=== PATIENT | male | born 2000 | race Caucasian/White ===

== ENCOUNTER 2025-02-02 10:44 | Outpatient (AMB) | payer BC, SELFPAY ==
--- NOTE | 2025-02-02 10:45 | MHC.PC.OV ---
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 - [facility] Last office visit/CPE/labs - 7-8 years Acute issue(s) - None Past Medical History - Acid reflux Surgical History - Tonsillectomy Family History - Mom: Thyroid disorder Social History - Nonsmoker. Does not vape. Drinks 5 beers twice weekly on weekends. Denies recreational drug use - Has been making healthy dietary choices. Exercises routinely. Generally sleep well - He is sexually active, in a monogamous relationship, and has no concerns for STDs Health maintenance - Last eye exam was several years ago. Referred to Ophthalmology for routine eye care - Last dental visit was 2 weeks ago - Last tetanus vaccine was 5 years ago. Record not currently available - Has not been vaccinated for the flu this season; declines vaccination [facility] Medical History (Updated 02/02/25 @ 11:26 by Moon Frank CNP) Acid reflux Surgical History (Updated 02/02/25 @ 10:59 by Stacy Jasso MA) History of tonsillectomy Family History (Updated 02/02/25 @ 10:59 by Stacy Jasso MA) Sister Asthma Mother Thyroid disorder Social History Housing: House Patient Tobacco Use Status: Never used Tobacco e-Cigarette/Vaping Use: Never Used Second Hand Smoke Exposure: Yes service: No Current occupational status: employed 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 1. Little interest or pleasure in doing things: not at all 2. Feeling down, depressed, or hopeless: not at all 3. Trouble falling or staying asleep, or sleeping too much: not at all 4. Feeling tired or having little energy: several days 5. Poor appetite or overeating: several days 6. Feeling bad about yourself - or that you are a failure or have let yourself or your family down: not at all 7. Trouble concentrating on things, such as reading the newspaper or watching television: not at all 8. Moving or speaking so slowly that other people could have noticed. Or the opposite - being so fidgety or restless that you have been moving around a lot more than usual: not at all 9. Thoughts that you would be better off or of hurting yourself in some way: not at all Total score: 2 Depression Screening Interpretation: Negative Depression Screening Done: Yes 94757 - PHQ-9 Billing: Yes Source: Developed by Drs. Suleiman Lujan, Sanjana Kang, Mack Lawton and colleagues, with an educational ponce from [employer]. Thrive Questionnaire Date Thrive assessed: 02/02/25 I am a: Patient What is your living situation today?: I have a steady place to live Within the past 12 months, did the food you bought not last and you didn't have the money to get more?: Never true Within the past 12 months, did you worry whether your food would run out before you got money to buy more?: Never true Do you have trouble paying for medicines?: No Do you have trouble getting transportation to medical appointments?: No Do you have trouble paying your heating and electricity bill?: No Do you have trouble taking care of your child, family member or friend?: No Do you have trouble with day-to-day activities such as bathing, preparing meals, shopping, managing finances, etc.?: No Are you currently unemployed and looking for a job?: No Are you interested in more education?: No Please select the resources that you would like help with: None Currently or been in a relationship where the following occur: No concerns reported THRIVE Score: 0 AUDIT C Alcohol Use Questionnaire (AUDIT-C) 1. How often do you have a drink containing alcohol?: 2-3 times a week 2. How many drinks containing alcohol do you have on a typical day when you are drinking?: 3 or 4 3. How often do you have six or more drinks on one occasion?: Monthly Total Score: 6 Score Reviewed/Action Taken: Yes MICHAEL-7 AMB Questionnaire MICHAEL-7 Date MICHAEL - 7 assessed: 02/02/25 Feeling nervous, anxious, or on edge: 1 = Several days Not being able to stop or control worryin = Several days Worrying too much about different things: 1 = Several days Trouble relaxin = Not at all Being so restless that it is hard to sit still: 0 = Not at all Becoming easily annoyed or irritable: 1 = Several days Feeling afraid as if something awful might happen: 0 = Not at all Total MICHAEL-7 score (0-4 normal; 5-9 mild; 10-14 moderate; 15-21 severe): 4 Source: Developed by Drs. Suleiman Lujan, Sanjana Kang, Mack Lawton and colleagues, with an educational ponce from [employer]. MICHAEL-7 Assessment Billing MICHAEL-7 Assessment Tool: MICHAEL-7 Assessment 18258 Review of Systems Const Details: Denies chills, Denies fatigue, Denies fever(s), Denies headache(s) and Denies weakness HEENT Denies change in vision, Denies dizziness, Denies headache(s), Denies hearing loss, Denies nasal congestion, Denies sinus pain, Denies sinus pressure and Denies sore throat Card Denies chest pain, Denies lightheadedness, Denies dyspnea and Denies other (palpitations) Resp Denies cough, Denies dyspnea and Denies wheezing GI Denies abdominal pain, Denies melena, Denies hematochezia, Denies change in bowel habits, Denies dyspepsia and Denies nausea Denies hematuria and Denies dysuria Musc Denies abnormal gait, Denies myalgias, Denies arthralgias, Denies numbness and Denies tingling Skin/Breast Denies rash, Denies unusual bruising and Denies wounds Neuro Denies abnormal gait, Denies dizziness, Denies headache(s), Denies memory loss, Denies numbness, Denies Sensory deficit (Neuro), Denies tingling and Denies weakness Psych Denies anxiety, Denies depression and Denies memory loss Endo Denies cold intolerance, Denies fatigue, Denies heat intolerance, Denies polydipsia and Denies polyuria Akil/Lymph Denies easy bleeding and Denies easy bruising Aller/Immun Denies wheezing Physical exam (Primary Care) Vital Signs: Last Vital Signs Temp 98.2 F 02/02/25 11:00 Pulse 67 02/02/25 11:00 Resp 16 02/02/25 11:00 BP 117/66 02/02/25 11:00 Pulse Ox 99 02/02/25 11:00 Oxygen Delivery Method Room Air 02/02/25 11:00 BMI result Body Mass Index 28.9 Tobacco/Smoking Status: Tobacco use Status Tobacco use date assessed 02/02/25 02/02/25 11:00 Patient Tobacco Use Status Never used Tobacco 02/02/25 11:00 e-Cigarette/Vaping Use Never Used 02/02/25 11:00 PHQ-9: PHQ-9 Score PHQ-9: Total score 2 02/02/25 10:53 Depression Screening Interpretation: Negative Thrive Assessment: Date of Thrive Assessment Date Thrive assessed 02/02/25 02/02/25 10:47 Currently or been in a relationship where the following occur: No concerns reported Const Other: General: no acute distress, well developed, alert and awake Nutritional Appearance: well nourished Orientation/consciousness: patient oriented x3 [facility] Head: Yes normocephalic and Yes atraumatic Ears: hearing grossly normal bilaterally and TM's normal bilaterally General nose exam: Normal external nose present and Normal nares present Mouth: Normal oral and palatal mucosa present and moist mucous membranes Teeth and gingiva: dentition normal Throat: Yes oropharynx normal Eyes Pupils: Equal, round and reactive pupils present and Pupil accommodation reflex normal EOM: EOMs intact bilaterally Neck Neck: Yes normal visual inspection, Yes no lymphadenopathy and Yes trachea midline Thyroid: Thyroid normal Carotids: no bruits Lymphatic: no lymphadenopathy noted Chest Chest palpation & inspection: normal inspection of the chest Resp Effort & Inspection: normal respiratory effort Auscultation: clear to auscultation bilaterally Cardio Rate: regular rate Rhythm: regular rhythm Heart sounds: S1 normal heart sound present, S2 normal heart sound present, no gallops, no murmurs and no rubs Bruits: no abdominal aortic bruits and no carotid bruits GI Palpation (GI): No Abdominal aortic bruit present, Soft to palpation, nontender, No hepatosplenomegaly present and No Rebound tenderness present Auscultation: normal bowel sounds General: Yes no CVA tenderness Back/Spine/Pelvis Back: no CVA tenderness Cervical Spine: cervical ROM normal and No Cervical spine tenderness Thoracic/Lumbar Spine: thoraco-lumbar ROM normal, No pain with thoraco-lumbar ROM, No thoracic spinal tenderness and No lumbar spinal tenderness Skin General: warm and dry. Normal skin color. Normal skin turgor Lesions: no lesions Rashes: no rashes Trauma: no lacerations or abrasions Wounds: no wounds Nails: normal Neuro General: patient oriented x3, gait normal and CN's II-XI intact bilaterally Cranial nerves: Yes Equal, round and reactive pupils present Cognition (Neuro): normal cognition Gait exam (Neuro): Normal gait present Motor exam (neuro): 5/5 motor strength present throughout Sensory Exam: No Sensory deficit (Neuro) Deep tendon reflexes (DTR's): Right patellar reflex intensity grade: 2+ and Left patellar reflex intensity grade: 2+ Extrem General: Yes normal to inspection, No edema and No calf tenderness Psych Appearance: grossly normal Affect: normal affect Attitude: cooperative Thought process: Normal thought process present Coding Level of Care Code New Pt Prev Care 18-39yr(21833 Diagnoses Normal physical examination, routine Z00.00 Eye exam, routine Z01.00 Laboratory tests ordered as part of a complete physical exam (CPE) Z00.00 Additional Codes MICHAEL-7 Assessment Billing - MICHAEL-7 Assessment Tool: MICHAEL-7 Assessment 53304 ([id number]) PHQ-9 - 68874 - PHQ-9 Billing: Yes ([id number]) Assessment & Plan Assessment & Plan (1) Normal physical examination, routine: Code(s): Z00.00 - Encounter for general adult medical examination without abnormal findings Category: Medical Plan: No significant functional limitation. Healthy diet and routine exercise encouraged. Advised to cut down or avoid alcohol intake; no more than 2 drinks daily or 5 weekly. Perform lab work and follow-up for a telehealth visit for labs review in 2-3 weeks. Return sooner with symptoms or concerns. Verbalized understanding and agreed with the plan. (2) Eye exam, routine: Code(s): Z01.00 - Encounter for examination of eyes and vision without abnormal findings Category: Medical Plan: His last eye exam was several years ago. Referred to Ophthalmology for routine eye care. (3) Laboratory tests ordered as part of a complete physical exam (CPE): Code(s): Z00.00 - Encounter for general adult medical examination without abnormal findings Category: Medical Plan: Fasting labs ordered as part of a complete physical exam. Advised to fast for at least 10 hours before getting labs drawn. May drink water Verbalized understanding and agreed with treatment plan. Orders: Orders Complete Blood Count Auto Diff Today Z00.00 - Encounter for general adult medical examination without abnormal findings TSH reflex Free T4 Today Z00.00 - Encounter for general adult medical examination without abnormal findings Comprehensive [place]. Panel Fast Today Z00.00 - Encounter for general adult medical examination without abnormal findings Lipid Panel Today Z00.00 - Encounter for general adult medical examination without abnormal findings Microalbumin, Random (w Creat) Today Z00.00 - Encounter for general adult medical examination without abnormal findings UA CC w/rflx Micro + Cult Today Z00.00 - Encounter for general adult medical examination without abnormal findings Vitamin D 25-OH Total Today Z00.00 - Encounter for general adult medical examination without abnormal findings Referrals Ophthalmology Referral Z01.00 - Encounter for examination of eyes and vision without abnormal findings
[2025-02-02 11:00] VITALS: BP 117/66; PULSE 67; RESP 16; TEMP 36.8; O2SAT 99; BMI 28.9
== END 2025-02-02 11:25 | disposition home or self-care (01) ==
LOC: HO.HMCFM 10:44
PROVIDERS: PCP Nurse Practitioner Family; Visit Provider Nurse Practitioner Family
DX: Z00.00 Encounter for general adult medical examination without abnormal findings (principal)

== ENCOUNTER → 2025-02-02 10:44 | Outpatient (BNVA) | payer BC, SELFPAY | PROVIDERS: PCP Nurse Practitioner Family; Visit Provider Nurse Practitioner Family | DX: Z00.00 Encounter for general adult medical examination without abnormal findings (principal) | CPT/HCPCS: 96127 ==

== ENCOUNTER 2025-04-13 09:47 | Outpatient (AMB) | payer BC, SELFPAY ==
--- OUTSIDE RECORDS SUMMARY | 2025-04-13 09:57 | XMS_ITS | Clinical Summary ---
Author Organization [facility] Address [address] [place] [phone] Phone Care Team Providers Care Public Relations Specialist Name Role Phone Pcp, Unknown Primary Care Provider Unavailabl e Allergies No known active allergies Medications No known medications Social History Tobacco Use Types Packs/Day Years Used Date Smoking Tobacco: Never Smokeless Tobacco: Never Alcohol Use Standard Drinks/Week Comments Not Currently 0 (1 standard drink = 0.6 oz pur e alcohol) Education Answer Date Recorded Are you interested in more education? Not on ifeoma e 01/22/2023 Are you concerned about learning? Not on file 01/22/2023 No 01/22/2023 No 01/22/2023 Digital Access Answer Date Recorded No 02/22/2023 No 02/22/2023 Reliable internet access at home? Not on file 02/22/2023 Device with a working camera? Not on file Sex and Gender Information Value Date Recorded Sex Assigned at Male 05/18/2020 9:24 AM EDT Legal Sex Male 8:48 PM EDT Gender Identity Male 05/18/2020 9:24 AM EDT Sexual Orientation Not on file Last Filed Vital Signs Vital Sign Reading Time Taken Comments Blood Pressure 155/87 05/18/2020 9:22 AM EDT Pulse 68 05/18/2020 9:22 AM EDT Temperature 36.8 C (98.2 F) 05/18/2020 9:22 AM EDT Respiratory Rate 16 05/18/2020 9:22 AM EDT Oxygen Saturation 100% 05/18/2020 9:22 AM EDT Inhaled Oxygen Concentration - - Weight 86.2 kg (190 lb) 05/18/2020 9:22 AM EDT Height 180.3 cm (5' 11 ) 05/18/2020 9:22 AM EDT Body Mass Index 26.5 05/18/2020 9:22 AM EDT Plan of Treatment Not on file Medical Devices Not on file [place] [address] [place] [address] [place] [address] [place] [address] PPO EPO [facility] [place] [address] [place] [address] [place] [address] PPO EPO [facility] [place] [address] [place] [address] [place] [address] [place] [address] PPO EPO [facility] PPO EPO Care Teams Public Relations Specialist Relationship Specialty Start Date End Date Pcp, Unknown PCP - General 05/18/20 Additional Source Comments The information contained in this document represents components of the legal health record. It is not the complete legal health record.[facility]
[2025-04-13 10:40] VITALS: BP 116/60; PULSE 52; TEMP 36.6; O2SAT 99; BMI 29.4
--- NOTE | 2025-04-13 10:40 | MHC.OFFWIV ---
Intake Vital Signs 04/13/25 10:40 Height 5 ft 10 in Weight 205 lb BMI 29.4 BP 116/60 Blood Pressure Location Rt brachial Position Sitting Pulse 52 Pulse Source Pulse Oximeter Temp 97.8 F Temp Source Oral Pulse Oximetry (%) 99 Oxygen Delivery Method Room Air Intake Visit Reasons: EP-chest pain Intake Note: presents with centered chest ache for a couple hours after a deep stabbing feeling Patient Tobacco Use Status: Never used Tobacco Allergies No Known Allergies Allergy (Verified 04/13/25 10:41) Do you need a note to return to daycare/school/sports/work: No HPI EP-chest pain HPI Details This is a 24-year-old male patient who presents to the walk-in clinic today following an incident this morning at work, where for about 15 minutes he experienced a sharp, stabbing, midsternal chest pain. This was not associated with any weakness, dizziness, shortness of breath, radiation of pain, palpitations. Denies any recent illnesses. 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 Has had some recent stress in the last few months with the purchase of a new house and also a promotion at work. He states that currently, he is only experiencing a dull ache in the middle of his chest. No exacerbating or alleviating factors. Denies any medical problems. 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 Current occupational exposures/hazards: Yes (chemicals) Cognitive needs: No Hearing needs: No Vision needs: No Review of Systems Const All systems reviewed & are unremarkable except as noted in HPI and below Physical Exam Vital Signs: Last Vital Signs Temp 97.8 F 07/18/25 10:40 Pulse 52 04/13/25 10:40 BP 116/60 04/13/25 10:40 Pulse Ox 99 04/13/25 10:40 Oxygen Delivery Method Room Air 04/13/25 10:40 BMI result Body Mass Index 29.4 Const General: cooperative, healthy appearing, comfortable, no acute distress and Physically active Nutritional Appearance: average body habitus HEENT Head: Yes normal to inspection Ears: hearing grossly normal bilaterally Neck Neck: Yes no lymphadenopathy Chest Chest palpation & inspection: normal inspection of the chest and normal palpation of entire chest wall Resp Effort & Inspection: normal respiratory effort Auscultation: clear to auscultation bilaterally Cardio Jugular venous distension: no JVD Palpation: normal PMI Rate: regular rate Rhythm: regular rhythm Heart sounds: S1 normal heart sound present and S2 normal heart sound present Skin General skin exam: no rashes or lesions noted Neuro General: no focal motor deficits Psych Appearance: grossly normal Mental Status: mental status grossly normal Speech and movement: Normal speech and movement present Assessment & Plan Assessment & Plan (1) Midsternal chest pain: Code(s): R07.89 - Other chest pain Plan: Patient has non reproducible, midsternal chest aching , following a brief 15 minute period earlier this morning where pain was more stabbing in nature. No other associated symptoms. Exam is unremarkable. VS are stable. Patient has no medical problems/takes no medication. He is active in work and sports. EKG showed sinus bradycardia (48) which appears to be in his normal range. We discussed that, from a walk-in standpoint, I cannot definitively rule out any cardiac involvement in his pain, however based on findings today, it is reasonable to monitor his symptoms and return for evaluation, or go to the ED, if pain worsens, or is associated with any other symptoms including dizziness, palpitations, weakness. Patient verbalizes understanding and agrees to plan. Orders: Orders AMB EKG-In Office Today R07.89 - Other chest pain Coding Level of Care Code Est Pt Level 4 (86945) Diagnoses Midsternal chest pain R07.89
== END 2025-04-13 11:40 | disposition home or self-care (01) ==
PROVIDERS: PCP Nurse Practitioner Family; Visit Provider Nurse Practitioner Family
DX: R07.89 Other chest pain (principal)

== ENCOUNTER → 2025-04-13 09:47 | Outpatient (BNVA) | payer BC, SELFPAY | PROVIDERS: PCP Nurse Practitioner Family | DX: R07.89 Other chest pain (principal) | CPT/HCPCS: 93005 ==